=== PATIENT | female | born 1990 | race Caucasian/White ===

== ENCOUNTER 2016-09-10 20:44 | Emergency (ER) | payer OTHER ==
[2016-09-10 22:04] LABS: URINE BILIRUBIN NEGATIVE (NEGATIVE); URINE BLOOD TRACE (NEGATIVE); URINE GLUCOSE (UA) NEGATIVE (NEGATIVE); URINE LEUKOCYTE ESTERASE NEGATIVE (NEGATIVE); URINE NITRITE NEGATIVE (NEGATIVE); URINE PROTEIN 1+ (NEGATIVE); URINE UROBILINOGEN 1 mg/dL (0-1 mg/dl)
[2016-09-10 22:12] LABS: URINE APPEARANCE SL CLOUDY; URINE COLOR DARK YELLOW
[2016-09-10 22:13] LABS: HCG,QUALITATIVE URINE NEGATIVE
[2016-09-10 22:14] LABS: URINE CRYSTALS MODERATE /hpf; URINE RBC 0 /hpf; URINE WBC 0-2 /hpf
[2016-09-10 22:15] LABS: URINE BACTERIA 1+; URINE MUCUS 1+
[2016-09-10] MEDS ORDERED: ONDANSETRON 4 MG ODT TAB ONE (23:54)
== END 2016-09-11 00:05 | disposition home or self-care (01) ==
LOC: ED 20:44
DX: M54.5 Low back pain (principal); R11.2 Nausea with vomiting, unspecified; R19.7 Diarrhea, unspecified
CPT/HCPCS: 81025; 81001; 99283 ×2; A9270